=== PATIENT | male | born 1995 | race Caucasian/White ===

== ENCOUNTER 2017-03-06 04:38 | Emergency (ER) | payer SELFPAY ==
[~2017-03-06] VITALS: Ht 172.7 cm; Wt 72.6 kg
[2017-03-06 04:39] VITALS: BP 152/93
--- NOTE | 2017-03-06 04:40 | NUR ---
TO BED 7 A 21 YO MALE BIBRA AND PER PER EMS WAS FOUND LYING IN A GUTTER BREATHING AT A RATE OF 5 PER MINUTE, 2MG NARCAN GIVEN. UPON ARRIVAL TO ER, PATIENT IS AAOX3, NO S/S OF ACUTE AND DISTRESS. BREATHING EVEN AND UNLABORED. VSS. AWAITING FOR ER MD RUBY.
[2017-03-06] MEDS ORDERED: TDAP [DIPH/PERTUSSIS/TET] 0.5 ML VIAL IM ONE (05:00)
--- NOTE | 2017-03-06 05:08 | NUR ---
Patient does not wish to proceed with medical care recommended by Dr Greenfield. Patient given information related to possible complications, up to and including , which could occur as a result of leaving the hospital at this time. Patient verbalizes understanding of risks involved due to leaving against medical advice. Patient has signed AMA form.
== END 2017-03-06 05:14 | disposition home or self-care (01) ==
LOC: ER 04:41
DX: T40.1X1A Poisoning by heroin, accidental (unintentional), initial encounter (principal); S09.90XA Unspecified injury of head, initial encounter; S01.112A Laceration without foreign body of left eyelid and periocular area, initial encounter; F11.10 Opioid abuse, uncomplicated; H50.9 Unspecified strabismus; Z98.890 Other specified postprocedural states; X58.XXXA Exposure to other specified factors, initial encounter; Y93.89 Activity, other specified; Y92.89 Other specified places as the place of occurrence of the external cause; Y99.8 Other external cause status
CPT/HCPCS: A4606; Z7610

== ENCOUNTER 2020-05-04 07:47 | Inpatient (IN) | payer MEDICAID ==
[~2020-05-04] VITALS: Ht 172.7 cm; Wt 82.1 kg
[2020-05-04] VITALS (14 sets, daily range): BP systolic 59–151; BP diastolic 34–107
--- NOTE | 2020-05-04 07:47 | NUR ---
PT BIB RA 78 FROM HIS CAR, C/O SOB. PT IS AAOX4, NOT IN RESPIRATORY DISTRESS, HOOKED TO JAVA DEVELOPMENT TEAM LEAD, KEPT RESTED AND COMFORTABLE. WILL CONTINUE TO MONITOR.
[2020-05-04] MEDS ORDERED: IV NS 0.9% 1,000 ML IV ONE (07:49)
--- NOTE | 2020-05-04 07:55 | NUR ---
SEEN AND EXAMINED BY .
[2020-05-04] MEDS ORDERED: ACETAMINOPHEN ES 500 MG TABLET PO ONE (08:00)
--- NOTE | 2020-05-04 08:00 | NUR ---
IV LINE ESTABLISHED BLOOD DRAWN AND SENT TO LAB.
--- NOTE | 2020-05-04 08:06 | NUR ---
COVID SWAB OBTAINED AND SENT TO LAB.
--- NOTE | 2020-05-04 08:09 | NUR ---
URINAL GIVEN BUT UNABLE TO PROVIDE URINE SPECIMEN THIS TIME.
[2020-05-04] MEDS ORDERED: ACETAMINOPHEN ES 500 MG TABLET ONE (08:11)
[2020-05-04 08:17] LABS: BASOPHILS # (AUTO) 0.1 /CMM (0.0-0.2); BASOPHILS % (AUTO) 0.4 % (0.0-2.0); EOSINOPHILS % (AUTO) 0.1 % (0.0-6.0); HEMATOCRIT 49 % (39-51); HEMOGLOBIN 16.7 g/dL (13.5-17.5); LYMPHOCYTES # (AUTO) 0.4 /CMM (0.8-4.8); LYMPHOCYTES % (AUTO) 1.8 % (20.0-44.0); MEAN CORPUSCULAR HGB CONC 34 g/dl (31.0-36.0); MEAN CORPUSCULAR VOLUME 84 fL (80-96); MONOCYTES # (AUTO) 1.9 /CMM (0.1-1.30); MONOCYTES % (AUTO) 7.7 % (2.0-12.0); NEUTROPHILS # (AUTO) 22.2 /CMM (1.8-8.9); PLATELET COUNT (AUTO) 659 /CMM (150-450); RED BLOOD CELL COUNT(AUTO) 5.87 MIL/uL (4.5-6.0); WHITE BLOOD COUNT (AUTO) 24.6 K/uL (4.3-11.0)
--- NOTE | 2020-05-04 08:21 | NUR ---
EDUCATION REP AT BED FOR XRAY.
[2020-05-04 08:27] LABS: ALBUMIN 3.3 g/dL (3.4-5.0); ALKALINE PHOSPHATASE 67 U/L (46-116); ASPARTATE AMINOTRANSFERASE 316 U/L (15-37); BILIRUBIN,TOTAL 4.9 mg/dL (0.2-1.0); CARBON DIOXIDE 39 mmol/L (21-32); GLUCOSE 106 mg/dL (74-106); POTASSIUM 5.4 mmol/L (3.5-5.1); SODIUM SERUM 121 mmol/L (136-145)
[2020-05-04 08:30] LABS: CALCIUM, SERUM 5.8 mg/dL (8.5-10.1); CHLORIDE 65 mmol/L (98-107); CREATININE 15.1 mg/dL (0.6-1.3); UREA NITROGEN, BLOOD 102 mg/dL (7-18)
--- NOTE | 2020-05-04 08:38 | NUR ---
CALLED [facility] FOR CONSULT.
--- NOTE | 2020-05-04 08:39 | NUR ---
CALLED PHARMACY FOR ANTIBIOTIC.
[2020-05-04 08:42] LABS: ALANINE AMINOTRANSFERASE 4235 U/L (12-78)
[2020-05-04] MEDS ORDERED: ASPIRIN 325 MG TABLET ONE (08:58)
[2020-05-04] MEDS ORDERED: CEFTRIAXONE 1GM BAG (ER ONLY) 50 ML IV ONE ×2 (08:59→09:00)
[2020-05-04] MEDS ORDERED: DEXAMETHASONE SOD PHOSPHATE 6 MG in IV D5W 50 ML IV ONE (09:00)
[2020-05-04] MEDS ORDERED: IV NS 0.9% 1,000 ML BAG IV ONE (09:00)
[2020-05-04] MEDS ORDERED: AZITHROMYCIN 500 MG in IV D5W 250 ML IV ONE (09:00)
[2020-05-04] MEDS ORDERED: ASPIRIN 325 MG TABLET PO ONE (09:00)
--- NOTE | 2020-05-04 09:00 | NUR ---
FOLLOWED UP PHARMACY FOR ANTIBIOTIC.
[2020-05-04] MEDS ORDERED: IV NS 0.9% 1,000 ML IV PRN ×2 (09:05→11:40)
[2020-05-04 09:25] LABS: ABG BASE EXCESS 9.8 mmol/L; ABG PCO2 56.9 mmHg (35.0-45.0); ABG PH 7.426 (7.350-7.450); ABG PO2 92.3 mmHg (75.0-100.0); AaDO2 127.5 mmHg; COHb 7.3 % (0.5-1.5); MetHb 0.4 % (0.0-1.5); O2Hb 88.6 % (94.0-97.0); SITE, ABG Right Radial; VENT MODE, BG 5L N/C
[2020-05-04] MEDS ORDERED: Z GUARD REMEDY 2 OZ OINT TP PRN (09:30)
[2020-05-04] MEDS ORDERED: ACETAMINOPHEN 325 MG TABLET PO PRN (09:30)
[2020-05-04] MEDS ORDERED: ENOXAPARIN SODIUM 40 MG/0.4 ML DISP.SYRIN SQ SCH (09:30)
[2020-05-04] MEDS ORDERED: ONDANSETRON HCL/PF 4 MG/2 ML VIAL IVP PRN (09:30)
[2020-05-04 09:34] LABS: D-DIMER 0.62 mg/L(FEU (0.17-0.50)
--- NOTE | 2020-05-04 10:25 | NUR ---
ROOM GIVEN ICU 263.
[2020-05-04 10:26] LABS: CREATINE KINASE, TOTAL 3803 U/L (39-308); FERRITIN 241 ng/mL (8-388)
[2020-05-04 10:34] LABS: C-REACTIVE PROTEIN 4.8 mg/dL (0.0-0.9)
--- NOTE | 2020-05-04 10:36 | NUR ---
URINE SPECIMEN COLLECTED AND SENT TO LAB.
[2020-05-04 10:46] LABS: APPEARANCE,URINE Clear (CLEAR); BILIRUBIN,URINE MODERATE (NEGATIVE); BLOOD, URINE Moderate Ery/uL (NEGATIVE); COLOR,URINE Yellow (YELLOW); KETONES,URINE Negative (NEGATIVE); LEUKOCYTE ESTERASE ,URINE Negative (NEGATIVE); NITRITE, URINE Negative (NEGATIVE); PROTEIN,URINE 100 mg/dl (NEGATIVE); UGLUCOSE 100 MG/DL mg/dL (NEGATIVE); UROBILINOGEN,URINE 0.2 EU/dL (0.2)
--- NOTE | 2020-05-04 10:48 | NUR ---
RT ABG CANCELLED IT WAS DOUBLE ORDERED. ABG DONE AT 0920 AM
--- NOTE | 2020-05-04 10:49 | NUR ---
CALLED ICU FOR REPORT RN NOT AVAILABLE.
[2020-05-04 10:53] LABS: BILIRUBIN,DIRECT 3.8 mg/dL (0.0-0.2)
[2020-05-04 10:56] LABS: BACTERIA,URINE Few /HPF (None Seen)
[2020-05-04 10:57] LABS: HYALINE CASTS, URINE Few /LPF (None Seen); SQUAMOUS EPITHELIAL CELL,UR None Seen /HPF (None Seen); URINE AMORPHOUS URATE Few /HPF (None Seen)
--- NOTE | 2020-05-04 11:11 | NUR ---
REPORT GIVEN TO EUSEBIA LUGO FOR BRITTA. WITH ONGOING IV ANTIBIOTIC.
[2020-05-04] MEDS ORDERED: HEPARIN SODIUM, PORCINE 5000 UNITS/1 ML VIAL SQ SCH (11:35)
[2020-05-04 11:47] LABS: THYROID STIMULATING HORMONE 0.408 uIU/mL (0.358-3.74)
--- NOTE | 2020-05-04 14:05 | NUR ---
MOTION PICTURES CARTOONIST NOTE: PATIENT CAME TO [facility] TODAY WITH C/O SOB. PER ER, PATIENT WAS RESIDING IN A REHAB CENTER WHEN HE LEFT FOR A FEW DAYS, LIVED IN HIS CAR AND LATER HAD RESPIRATORY SYMPTOMS WHEN HE PRESENTED HIMSELF IN THE HOSPITAL. PATIENT WAS BROUGHT UP TO THE ICU AT 1128 WITH DX OF SEPSIS, R/O (RESULTS ARE NEGATIVE), POSSIBLE KATH. PATIENT'S SKIN IS INTACT. NO SIGNS OF ACUTE RESPIRATORY DISTRESS NOTED, NC USED FOR COMFORT, SATING WELL. SR IN THE 80S ON BEDSIDE MONITOR. PATIENT C/O MILD BACK AND NECK PAIN, CONTACTED DR BARCLAY FOR ORDERS FOR PAIN MEDS, AWAITING CALL BACK. MD AWARE OF ADMISSION AND ROUNDED ON PATIENT WITH ADMITTING ORDERS, ALREADY STARTED PLAN OF CARE AND WILL CONTINUE TO MONITOR PATIENT FOR CHANGES. SAFETY MEASURES IMPLEMENTED, BED IN LOWEST POSITION, LOCKED, SIDE RAILS UP X2, CALL LIGHT WITHIN REACH.
[2020-05-04] MEDS ORDERED: HEPARIN SODIUM, PORCINE 5000 UNITS/1 ML VIAL SQ ONE (15:30)
[2020-05-04] MEDS: HEPARIN INFUSION/D5W 500 ML IV PRN (16:13)
[2020-05-04 16:57] LABS: BASOPHILS % (AUTO) 0.2 % (0.0-2.0); HEMATOCRIT 45 % (39-51); HEMOGLOBIN 14.9 g/dL (13.5-17.5); LYMPHOCYTES # (AUTO) 0.5 /CMM (0.8-4.8); LYMPHOCYTES % (AUTO) 2.7 % (20.0-44.0); MEAN CORPUSCULAR HGB CONC 34 g/dl (31.0-36.0); MEAN CORPUSCULAR VOLUME 85 fL (80-96); MONOCYTES # (AUTO) 0.7 /CMM (0.1-1.30); MONOCYTES % (AUTO) 3.9 % (2.0-12.0); NEUTROPHILS # (AUTO) 17.5 /CMM (1.8-8.9); NEUTROPHILS % (AUTO) 93.2 % (43.0-81.0); PLATELET COUNT (AUTO) 574 /CMM (150-450); RED BLOOD CELL COUNT(AUTO) 5.27 MIL/uL (4.5-6.0); WHITE BLOOD COUNT (AUTO) 18.8 K/uL (4.3-11.0)
[2020-05-04] MEDS ORDERED: IV Sodium Chloride 3% 500 ML 500 ML IV SCH (19:00)
--- NOTE | 2020-05-04 19:00 | NUR ---
DR BARCLAY AND DR BHAGAT BOTH AWARE OF THE PATIENT'S CRITICAL LAB VALUES.
--- NOTE | 2020-05-04 19:30 | NUR ---
RN CLOSING NOTE: PATIENT REMAINS IN BED. VSS AT THIS TIME. NO SIGNS OF ACUTE DISTRESS NOTED. NOT SIGNS OF RESPIRATORY DISTRESS NOTED. SAFETY MEASURES IMPLEMENTED, BED IN LOWEST POSITION, LOCKED, SIDE RAILS UP X2, CALL LIGHT WITHIN REACH. GAVE REPORT TO ONCOMING SHIFT RN FOR CONTINUITY OF CARE.
--- NOTE | 2020-05-04 19:30 | NUR ---
GRIZZLY WORKER NOTE RECEIVED PT ALERT TO NAME AND PLACE. NOTED WITH EPISODES OF CONFUSION AND RESTLESSNESS. REORIENTED PT. ON TELE-SR. ROOM AIR. BREATHING UNLABORED. ILEANA MIDLINE REINFORCED WITH HEPARIN DRIP INFUSING. KATZ CATHETER IN PLACE AND DRAINING TEA COLOR URINE BY GRAVITY. BED ALARM ENABLED. CALL LIGHT WITHIN REACH. WILL CONTINUE TO MONITOR.
--- NOTE | 2020-05-04 21:30 | NUR ---
COMMERCIAL GLAZIER NOTE 3% SODIUM IV INFUSION STARTED @30ML/HR, TO INFUSE 150ML PER MD ORDER. WILL MONITOR PT.
[2020-05-04 22:02] LABS: ALBUMIN 2.8 g/dL (3.4-5.0); BILIRUBIN,TOTAL 3.7 mg/dL (0.2-1.0); POTASSIUM 5.2 mmol/L (3.5-5.1); TOTAL PROTEIN, SERUM 6.2 g/dL (6.4-8.2)
[2020-05-04 22:08] LABS: CALCIUM, SERUM 5.2 mg/dL (8.5-10.1); CREATININE 15.6 mg/dL (0.6-1.3)
[2020-05-04] MEDS: NICOTINE PATCH (21MG) 21 MG PATCH.TD24 TD SCH (23:06)
--- NOTE | 2020-05-04 23:30 | NUR ---
PRE OWNED SALES MANAGER NOTE PT ASKING TO GO OUTSIDE AND SMOKE. EDUCATED PT ON SMOKING CESSATION. NOTIFIED ANILA DONALD WITH ORDERS TO START NICOTINE PATCH 21 MG. ORDERS NOTED AND CARRIED OUT.
[2020-05-05] VITALS (20 sets, daily range): BP systolic 110–161; BP diastolic 56–114
--- NOTE | 2020-05-05 | NUR ---
SANITATION OFFICER NOTE CONSENT FOR INTIATION OF DIALYSIS AND DIALYSIS CATHETER INSERTION RECEIVED. ANILA DONALD AT BEDSIDE INSERTING DIALYSIS CATHETER. RIGHT FEMORAL PAULA CATH INSERTED AND SECURED WITH TAPE TO LEG. NOTED PT RESTLESS AND PULLING ON LINES AND TUBES. PER ANILA DONALD 1:1 SITTER ORDERED. BED ALARM ENABLED. CALL LIGHT WITHIN REACH. WILL MONITOR.
--- NOTE | 2020-05-05 02:17 | NUR ---
LAB CALLED WITH NEGATIVE COVID RESULT.
[2020-05-05 04:47] LABS: BASOPHILS # (AUTO) 0.1 /CMM (0.0-0.2); BASOPHILS % (AUTO) 0.6 % (0.0-2.0); HEMATOCRIT 45 % (39-51); LYMPHOCYTES # (AUTO) 0.4 /CMM (0.8-4.8); LYMPHOCYTES % (AUTO) 2.2 % (20.0-44.0); MEAN CORPUSCULAR HGB CONC 34 g/dl (31.0-36.0); MEAN CORPUSCULAR VOLUME 84 fL (80-96); MONOCYTES # (AUTO) 1.5 /CMM (0.1-1.30); MONOCYTES % (AUTO) 8.4 % (2.0-12.0); NEUTROPHILS # (AUTO) 16.1 /CMM (1.8-8.9); NEUTROPHILS % (AUTO) 88.8 % (43.0-81.0); PLATELET COUNT (AUTO) 545 /CMM (150-450); WHITE BLOOD COUNT (AUTO) 18.2 K/uL (4.3-11.0)
[2020-05-05 05:10] LABS: ALBUMIN 2.7 g/dL (3.4-5.0); BILIRUBIN,TOTAL 3.2 mg/dL (0.2-1.0); MAGNESIUM 3.1 mg/dL (1.8-2.4); POTASSIUM 5.4 mmol/L (3.5-5.1)
[2020-05-05 05:14] LABS: ALBUMIN 2.7 g/dL (3.4-5.0); BILIRUBIN,DIRECT 2.8 mg/dL (0.0-0.2); BILIRUBIN,TOTAL 3.2 mg/dL (0.2-1.0)
[2020-05-05 05:15] LABS: CALCIUM, SERUM 5.5 mg/dL (8.5-10.1)
[2020-05-05 05:16] LABS: CREATININE 15.7 mg/dL (0.6-1.3); PHOSPHORUS 12.1 mg/dL (2.5-4.9)
--- NOTE | 2020-05-05 06:46 | NUR ---
DYE REEL OPERATOR NOTE PT REMAINED STABLE DURING SHIFT. WITH EPISODES OF CONFUSION/RESTLESSNESS BUT REDIRECTABLE. REMAINS ON HEPARIN DRIP. RIGHT FEMORAL PAULA CATH REINFORCED D/T PT TOUCHING THE SITE. INSTRUCTED TO NOT TOUCH OR TRY TO REMOVE TAPE FROM RIGHT FEMORAL. PT DEMONSTRATES UNDERSTANDING. BED ALARM ENABLED. ALL NEEDS ATTENDED TO PROMPTLY. WILL ENDORSE TO NEXT SHIFT FOR CONTINUITY OF CARE.
--- NOTE | 2020-05-05 07:50 | NUR ---
RN OPENING NOTE: RECEIVED PATIENT IN BED THIS MORNING. PATIENT IS ALERT AND ORIENTED X3, BUT HAS EPISODES CONFUSED AND FORGETFUL. PATIENT IS SATING WELL ON ROOM AIR. NO SIGNS OF ACUTE RESPIRATORY DISTRESS NOTED. NO SIGNS OF ACUTE DISTRESS NOTED AT THIS TIME. PATIENT HAS KATZ, DRAINING DARK YELLOW URINE. ADMITS TO EPISODES OF NAUSEA, OFFERED ZOFRAN BUT IS REFUSING AT THIS TIME. ILEANA MIDLINE C/D/I, FLUSHING WELL, NO SIGNS OF COMPLICATIONS NOTED, RUNNING HEPARIN AT 1250 UNITS/HR AT THIS TIME, AWAITING NEW PTT FOR POSSIBLE ADJUSTMENT OF DOSE. NO SIGNS OF BLEEDING NOTED AT THIS TIME. R FEMORAL PAULA CATH, C/D/I, NO SIGNS OF COMPLICATIONS NOTED. PATIENT HAS 1:1 D/T PULLING OUT MEDICAL EQUIPMENT AND TUBING. SAFETY MEASURES IMPLEMENTED, BED IN LOWEST POSITION, LOCKED, SIDE RAILS UP X2, CALL LIGHT WITHIN REACH. WILL CONTINUE TO MONITOR PATIENT FOR CHANGES.
[2020-05-05 08:30] LABS: HIV SCRN 4G wRFX Non Reactive (Non Reactive)
[2020-05-05] MEDS: SEVELAMER CARBONATE 800 MG TABLET PO SCH ×3 (08:31→17:18)
[2020-05-05] MEDS: NICOTINE PATCH (21MG) 21 MG PATCH.TD24 TD SCH (08:32)
[2020-05-05] MEDS: CEFTRIAXONE 1 G in IV D5W 50 ML IV SCH (08:32)
[2020-05-05] MEDS ORDERED: DEXAMETHASONE SOD PHOSPHATE 6 MG in IV D5W 50 ML IV SCH (09:00)
--- NOTE | 2020-05-05 09:07 | NUR ---
DR BHAGAT AWARE OF PATIENT'S CRITICAL LABS
[2020-05-05] MEDS: AZITHROMYCIN 500 MG in IV D5W 250 ML IV SCH (09:29)
[2020-05-05] MEDS: HEPARIN INFUSION/D5W 500 ML IV PRN (13:05)
--- NOTE | 2020-05-05 15:51 | NUR ---
PATRICK CONSULT: structural steel worker apprentice consulted with the pt at bedside regarding his foreseeable discharge plan. Nafisa was at bedside. Pt reported he was previously residing at "[facility]," and does not wish to return. Pt reported he has "some family" nearby, whom he is trying to get in contact with for support. SW observed the pt speaking with his mother on his personal phone. Pt also reported having a girlfriend, whom he was living with before the last sober living he was residing at. Pt reported he has been to numerous sober livings in the area. Pt reported he is "working" on finding a place to discharge to. SW provided [place] liv[place] [facility] [place] Additionally, PATRICK provided pt a list of all inpatient substance abuse treatment centers in [facility], and [facility] social service resources to refer to if needed. Pt reported he plans to contact sober living placements on his own. Pt denied suicidal and homicidal ideation. client services administrator available for support as needed, pending a disposition on a discharge plan.
--- NOTE | 2020-05-05 18:33 | NUR ---
PATIENT WAS TRANSFERRED TO [facility] AT 1815. GAVE REPORT TO EUSEBIA FITZGERALD FOR CONTINUITY OF CARE. PATIENT WAS IN STABLE CONDITION AT TIME OF TRANSFER. Addendum: 05/05/20 at 1834 by HUEY HAYES RN NO ACUTE DISTRESS WAS NOTED AT THE TIME OF TRANSFER.
--- NOTE | 2020-05-05 18:34 | NUR ---
RECEIVED PT TRANSFER FROM ICU AND REPORT GIVEN BY EZEQUIELTANK TRUCK OPERATOR. PT IS ALERT AND CONFUSED, AWAKE BUT VERBALLY RESPONSIVE SITTING ON THE BED. WITH 1:1 SITTER AT THE BEDSIDE.ON ROOM AIR O2 SAT 98% ON TELE MONITOR HR 97. WITH KATZ CATHETER INTACT DRAINING TEA COLORED URINE. EMPTIED AT ICU WITH 300 ML URINE OUTPUT. SKIN INTACT.PT IS BUSY WATCHING ON HIS CELL PHONE AT THIS TIME LYING IN BED.DENIES ANY PAIN OR DISTRESS.WITH ONGOING HEPARIN DRIP TO ILEANA MIDLINE RUNNING AT 1550 UNITS/HR. WITH LEFT FEMORAL PAULA CATHETER INTACT.HEMODIALYSIS DONE TODAY WITH 2LITERS OUTPUT.WILL MONITOR. ENDORSED TO PLATE MILL MILL HAND NURSE CARE.
--- NOTE | 2020-05-05 20:00 | NUR ---
LICENSED STAFF MFT: RECEIVED REPORT FROM AMILCAR Troy RN AT 1915. MET WITH PT IN THE ROOM, PT IS A/O X3, WITH REPORTS OF PERIODS OF CONFUSION, ON AND OFF. CURRENTLY, PT ABLE TO STATE HIS NAME, BDATE, MONTH DATE YEAR AND PRESIDENT. PT ON RA, RESPIRATION EVEN AND UNLABORED. PT HAS ILEANA MIDLINE PATENT AND FLUSHING WELL, CURRENTLY INFUSING WITH HEPARIN DRIP AT 1550 U/HR EQUIVALENT TO 31ML/HR WITH NEXT PTT DRAW AT 2350PM. PT S/P HD TODAY WITH LEFT FEMORAL PAULA CATH IN PLACED, DRESSING C/D/I, NO ACTIVE BLEEDING NOTED, DIALYSIS OUTPUT OF 2L. PER REPORT, PT HAD EPISODE OF PULLING OUT IV ACCESS, ALSO VOICING HIS WANTING TO LEAVE THE HOSPITAL. DISCUSSED PLAN OF CARE TO PT. PT APPEARS TO BE PASSIVE, ALWAYS ON THE PHONE, ALTHOUGH INTERACTS WHEN ENGAGED IN CONVERSATION. PT IS CALM, AND COOPERATIVE AT THIS TIME. TELE MONITORING SINUS RHYTHM HR 91. SAFETY PRECAUTIONS FOR FALL INITIATED, CALL LIGHT IN REACH, WILL CONTINUE MONITORING PT.
--- NOTE | 2020-05-05 20:51 | NUR ---
RN NOTES: RECEIVED CALL FROM MR. GRICEL COOPER, PER CALLER, HE IS THE BIOLOGICAL FATHER OF THE PT. PT IS A/O X3, VERIFIED WITH PT REGARDING HIS REQUEST, PT HAS REQUESTED NOT TO RELEASE INFORMATION TO MR. GRICEL COOPER. EXPLAIN TO GRICEL BHANDARI ABOUT THE PT'S DECISION. LOCOMOTIVE SWITCH OPERATOR AWARE.
[2020-05-05] MEDS: MUPIROCIN OINT 2% 22 GM TUBE SCH (21:33)
--- NOTE | 2020-05-05 21:53 | NUR ---
RN NOTES: AT 2129- CONTACTED WENDY SCHUSTER SUPERVISOR PRODUCTION HOSPITALIST, REGARDING PT'S SITUATION. RECEIVED CALL FROM PT'S MOTHER SANTY MARQUEZ [phone]. PER MOTHER SHE WOULD LIKE PT TO BE PLACED ON 5150 HOLD, PT BEEN THREATENING HER THAT HE WILL LEAVE THE HOSPITAL ANYTIME. ACCDG TO SANTY, PT HAS IRRATIONAL MIND, AND VOICING HE IS NOT SAFE IN THE HOSPITAL AND WANTING TO LEAVE AMA. PT'S MOM STATED SHE KNOWS PT HAS RIGHT TO LEAVE HOWEVER SHE THINKS THAT IT IS NOT SAFE FOR PT TO LEAVE AMA AND MAKE THE CERTAIN DECISION BECAUSE OF HIS STATE OF MIND. PT IS A/O X3, BUT WITH EPISODE OF CONFUSION. IN ADDITION, SHE STATED THAT PT BEEN SENDING MESSAGES TO HER THAT WERE VERY ODD. SHE ALSO WANTED TO PUT PT ON RESTRAINT. 2138- RECEIVED TELEPHONE ORDER FROM DR DONALD TO PLEASE CALL CRISIS TEAM REGARDING PT. 2144- NOTIFIED CARPET INSPECTOR FINISHED NOREEN OF THE SITUATION. 2149- CARPET INSPECTOR FINISHED CONTACTED ART/CRISIS TEAM HOWEVER HE STATED HE IS NOT THE SUPERVISOR PRODUCTION FOR IBLLY, IT IS NIR [phone] STARTING 2199.
--- NOTE | 2020-05-05 22:01 | NUR ---
RN NOTES: ACTUARIAL ANALYSTNIC SORTO CONTACTED NIR/CRISIS TEAM, DIRECTED THRU A VOICEMAIL, LEFT A MESSAGE. AWAITING FOR CALL BACK.
--- NOTE | 2020-05-05 22:37 | NUR ---
RN NOTES: RECEIVED CALL FROM PT'S MOTHER SANTY MARQUEZ, RELAYED ABOUT UPDATE, AWAITING TO BE SEEN BY CRISIS TEAM. INFORMED PT CURRENTLY ASLEEP. PER SANTY THEY WOULD LIKE TO SPEAK WITH CRISIS TEAM AFER EVALUATING THEIR SON. SHE STATED SHE IS JUST VERY SCARED THAT THE PT WILL HURT HIMSELF ONCE HE LEAVE THE HOSPITAL. ACCDG TO HER SHE AND HER SON HAD VIDEO CALL EARLIER AND SON STATING THAT HE FEELS LIKE HE'S BEING WATCH, AND THINK HE'S ON PSYCH UNIT. STEAM TUNNEL FEEDER NOREEN MADE AWARE OF THE CONVERSATION.
--- NOTE | 2020-05-05 23:00 | NUR ---
RN NOTES: CANDY SEPARATOR ENROBING NOREEN HELPING IN CONTACTING CRISIS TEAM NURSE
--- NOTE | 2020-05-05 23:30 | NUR ---
RN NOTES: PT SLEEPING AT THIS TIME, APPEARS COMFORTABLE, NO SOB NOTED. SITTER AT BEDSIDE.
[2020-05-06] VITALS: BP 131/71
--- NOTE | 2020-05-06 00:14 | NUR ---
RN NOTES: DIRECTOR MEDIA BEEN TRYING TO REACH CRISIS TEAM, EVEN COORDINATED WITH ER AND GPS, AWAITING CALL BACK FROM CRISIS NURSE
--- NOTE | 2020-05-06 00:16 | NUR ---
RN NOTES/PTT DRAW: MUD WORKER JUST FINISHED DRAWING BLOOD, TIMED PT INR AND PTT. PT ON HEPARIN DRIP.
--- NOTE | 2020-05-06 00:20 | NUR ---
RN NOTES: PER PERSONAL LINES APPRAISER NOREEN, THEY CONTACTED BARTOLO CALI, HEAD OF CRISIS TEAM, AWAITING FOR CALL BACK.
--- NOTE | 2020-05-06 01:03 | NUR ---
RN NOTES: RESULT OF PTT CAME BACK: PT 13.5 INR 1.28 APTT 54.0
--- NOTE | 2020-05-06 01:15 | NUR ---
RN NOTES/HEPARIN DRIP: RESULT OF PTT CAME BACK: PT 13.5 INR 1.28 APTT 54.0 PER HEPARIN BASED PROTOCOL, NO CHANGE IN RATE NEXT PTT DRAW ON 05/06/2020 AT 2300 CURRENT RATE: 1550 U/HR, EQUIVALENT TO 31 ML/HR
[2020-05-06] MEDS: HEPARIN INFUSION/D5W 500 ML IV PRN (04:09)
[2020-05-06 04:10] VITALS: BP 144/72
--- NOTE | 2020-05-06 06:07 | NUR ---
rn notes/crisis team eval: gregg crisis team nurse ca,me to evaluate pt, also made aware of situation, provided sbar, also informed to call pt's mpother per request after evaluating pt. barn operator bernabe aware and witness
--- NOTE | 2020-05-06 06:21 | NUR ---
rn notes: per gregg crisis nurse, he spoke with pt and pt's mother. accdg to gregg pt is not holdable, pt able to make decision for himself, and that the mother appears to be worried about pt's drug abuse. trial attorney aware.
[2020-05-06 06:31] LABS: BASOPHILS % (AUTO) 0.2 % (0.0-2.0); HEMATOCRIT 43 % (39-51); HEMOGLOBIN 14.3 g/dL (13.5-17.5); LYMPHOCYTES # (AUTO) 0.5 /CMM (0.8-4.8); LYMPHOCYTES % (AUTO) 2.6 % (20.0-44.0); MEAN CORPUSCULAR HGB CONC 33 g/dl (31.0-36.0); MEAN CORPUSCULAR VOLUME 86 fL (80-96); MONOCYTES # (AUTO) 1.9 /CMM (0.1-1.30); MONOCYTES % (AUTO) 9.4 % (2.0-12.0); NEUTROPHILS # (AUTO) 17.8 /CMM (1.8-8.9); NEUTROPHILS % (AUTO) 87.8 % (43.0-81.0); PLATELET COUNT (AUTO) 439 /CMM (150-450); RED BLOOD CELL COUNT(AUTO) 5.02 MIL/uL (4.5-6.0); WHITE BLOOD COUNT (AUTO) 20.2 K/uL (4.3-11.0)
[2020-05-06 07:10] LABS: ALBUMIN 2.2 g/dL (3.4-5.0); BILIRUBIN,DIRECT 1.4 mg/dL (0.0-0.2); BILIRUBIN,TOTAL 1.7 mg/dL (0.2-1.0); CALCIUM, SERUM 6.4 mg/dL (8.5-10.1); MAGNESIUM 2.8 mg/dL (1.8-2.4); POTASSIUM 5.6 mmol/L (3.5-5.1); TOTAL PROTEIN, SERUM 5.5 g/dL (6.4-8.2)
[2020-05-06 07:12] LABS: CREATININE 13.4 mg/dL (0.6-1.3)
--- NOTE | 2020-05-06 07:20 | NUR ---
rn notes/critical lab phos 9.0: received critical lab for phos 9.0 reported by ximena from lab. endorsed to sanjuana barton. epic hospitalist to be made aware.
--- NOTE | 2020-05-06 07:30 | NUR ---
RN OPEN NOTES A/O x 4 patient in bed resting with no signs of distress room air. Right UA midline intact and patent with Heparin drip running. Maria cath is intact. Safety measures are applied bed is lock in low position side rails up x 2 for safety. Will continue to monitor.
--- NOTE | 2020-05-06 07:32 | NUR ---
end of shift report: pt able to sleep for approximately 6hrs 1:1 sitter at bed side for safety. remains passive, appears calm, answer question and interacts when engaged in conversation. pt remains a/o x2-3 with periods of confusion. pt able to make needs known. pt denies any hi/si, denies any pains of hurting himself, however pt remains quiet most of the time and mostly engaged on his cellphone. donell midline remains patent and flushing well, [place] 92302e/hr equivalent to 31ml/hr. next ptt draw at 2300 tonight. right femoral hd cath remains in placed, dressing in placed, c/d/i.no s/s of active bleeding noted. ibarra catheter remains in placed, bag draining via gravity. tele monitoring sinus rhythm hr 90. vs remains stable, needs attended. ,safety precautions for fall remains engaged, call light in reach, will endorse to day rn for continuity of care.
[2020-05-06 08:00] VITALS: BP 148/74
[2020-05-06 08:11] LABS: COMPLEMENT C3, SERUM 62 mg/dL (82-167); COMPLEMENT C4, SERUM 16 mg/dL (14-44)
[2020-05-06] MEDS: SEVELAMER CARBONATE 800 MG TABLET PO SCH ×3 (08:50→17:16)
[2020-05-06] MEDS: NICOTINE PATCH (21MG) 21 MG PATCH.TD24 TD SCH (08:50)
[2020-05-06] MEDS: MUPIROCIN OINT 2% 22 GM TUBE SCH ×2 (09:02→20:29)
--- NOTE | 2020-05-06 10:32 | NUR ---
RN NOTES RELAYED LATEST TROPONIN LEVEL TO DR. HARO, RECEIVED ORDER TO DC HEPARIN DRIP.
[2020-05-06] MEDS: CEFTRIAXONE 1 G in IV D5W 50 ML IV SCH (10:42)
--- NOTE | 2020-05-06 14:30 | NUR ---
RN NOTES PATIENT INSISTED FOR AN HIV TEST DONE AGAIN. I INFORMED PATIENT ABOUT HIS PREVIOUS HIV TEST RESULT BEING NEGATIVE, HE STILL INSISTED FOR ANOTHER TEST. I LET DR. BARCLAY KNOW , DR. BARCLAY GAVE THE OK TO ODER ANOTHER HIV TEST.
[2020-05-06 15:06] LABS: CREATININE, URINE 242.6 MG/DL (30.0-125.0)
[2020-05-06] MEDS: AZITHROMYCIN 500 MG in IV D5W 250 ML IV SCH (15:43)
--- NOTE | 2020-05-06 19:28 | NUR ---
RN CLOSED NOTES A/O x 4 patient in bed resting with no signs of distress room air. Right UA midline intact and patent with Heparin drip running. Maria cath is intact. Scheduled medications were given and tolerated well without complications. Safety measures are applied bed is lock in low position side rails up x 2 for safety. Will continue to monitor. Addendum: 05/06/20 at 1929 by BLAIR VALENZUELA RN Will endorse to the next shift nurse.
[2020-05-06 20:00] VITALS: BP 147/79
--- NOTE | 2020-05-06 20:00 | NUR ---
RECYCLABLE MATERIALS COLLECTOR: RECEIVED REPORT FROM ELISA RN AT 1915. MET WITH PT AT BED SIDE, PT EATING DINNER, SITTER AT BED SIDE, PT ALSO REQUESTED FOR CEREALS. PT S/P HD TODAY 2L OUTPUT. PT APPEARS CALM AND PLEASANT, A/O X3-4 (ABLE TO STATE NAME , MONTH DATE YEAR, PRESIDENT AND REASON WHY HE'S HERE). ILEANA MIDLINE PATENT AND FLUSHING WELL. KATZ CATHETER IN PLACED, BAG DRAINING VIA GRAVITY. JHAD ONE BM TODAY. SAFETY PRECAUTIONS FOR FALL INITIATED, CALL LIGHT IN REACH, WILL CONTINUE MONITORING PT.
--- NOTE | 2020-05-06 20:33 | NUR ---
RN NOTES/MED: SCHEDULED BACTROBAN ADMINISTERED AT THIS TIME, APPLIED ON BILATERAL NOSTRILS. PT ON THE PHONE TALKING WITH FAMILY. SITTER [place]IN[place]O AT BED SIDE. PT ON 1:1 SITTER FOR SAFETY AND ELOPEMENT RISK.
[2020-05-06 21:06] LABS: *ANA ANTI-CENTROMERE B AB <0.2 AI (0.0-0.9); *ANA ANTI-DNA(DS) AB, QN <1 IU/mL (0-9); *ANA ANTI-JO-1 <0.2 AI (0.0-0.9); *ANA ANTICHROMATIN ANTIBODY <0.2 AI (0.0-0.9); *ANA RNP ANTIBODIES <0.2 AI (0.0-0.9); *ANA SJOGREN'S ANTI-SS-A <0.2 AI (0.0-0.9); *ANA SJOGREN'S ANTI-SS-B <0.2 AI (0.0-0.9); *ANAANTI-SCLERODERMA-70 AB <0.2 AI (0.0-0.9); *ANASMITH AB <0.2 AI (0.0-0.9)
--- NOTE | 2020-05-06 23:26 | NUR ---
rn notes: pt sleeping at this time. sitter at bed side. pt appears calm and comfortable, no facial grimace noted.
--- NOTE | 2020-05-07 06:49 | NUR ---
end of shift report: pt remains with 1:1 sitter. pt remains calm, cooperative, engaged in conversation. no episode of trying to pull out iv access, didnt report or verbalize any plans of leaving the hospital. all due meds administered. ibarra catheter remains in placed. iv access remains patent and flushing well, on hl, no s/s of iv infiltration noted. right arianna hd cath remains in placed, dressing c/d/i. no s/s of active bleeding noted. no untoward behavior noted throughout the shift. able to sleep for at least 6hrs. PLAN OF CARE: CONTINUE IV ATB PER ID. vs remains stable, needs attended. safety precautions for fall remains engaged, call light in reach, will endorse to day rn for continuity of care.
--- NOTE | 2020-05-07 07:30 | NUR ---
PATIENT RECEIVED RESTING COMFORTABLY IN BED WITH EYES CLOSED. NO S/S OR C/O PAIN OR DISTRESS NOTED. SIDERAILS UP X2, CALL LIGHT LEFT WITHIN REACH. WILL CONTINUE PLAN OF CARE.
[2020-05-07] MEDS: CEFTRIAXONE 1 G in IV D5W 50 ML IV SCH (08:03)
[2020-05-07] MEDS: NICOTINE PATCH (21MG) 21 MG PATCH.TD24 TD SCH (08:03)
[2020-05-07] MEDS: SEVELAMER CARBONATE 800 MG TABLET PO SCH ×3 (08:05→17:47)
[2020-05-07] MEDS: MUPIROCIN OINT 2% 22 GM TUBE SCH ×2 (08:06→20:33)
[2020-05-07] MEDS: AZITHROMYCIN 500 MG in IV D5W 250 ML IV SCH (09:04)
--- NOTE | 2020-05-07 15:30 | NUR ---
Spoken to RN today regarding the U/S Needle Guided Biopsy. Advised him that it will be done possibly tomorrow depending on the availability of pathology
--- NOTE | 2020-05-07 18:43 | NUR ---
CHANGE OF SHIFT REPORT PT RESTING COMFORTABLY IN BED. NO S/S OR C/O PAIN OR DISTRESS NOTED. SIDE RAILS UP X2, CALL LIGHT LEFT WITHIN REACH. PT KEPT CLEAN, DRY, AND COMFORTABLE. NO SIGNIFICANT CHANGES SINCE PREVIOUS SHIFT. WILL GIVE REPORT TO NETO LAWS.
--- NOTE | 2020-05-07 19:48 | NUR ---
MS RN OPENING NOTES PATIENT RECEIVED RESTING IN BED A/O X 4. STABLE ON RA WITH BREATHING EVEN AND UNLABORED, NO SOB NOTED. NO SIGNS OF ACUTE DISTRESS. PATIENT AMBULATORY. NO COMPLAINTS OF PAIN OR DISCOMFORT. KATZ CATH NOTED AND IN PLACE. ILEANA MIDLINE HL AND R FEMORAL PAULA CATH NOTED. SAFETY PRECAUTIONS IN PLACE WITH BED IN LOWEST POSITION, CALL LIGHT WITHIN REACH, BREAKS ON, SIDE RAILS UP. WILL CONTINUE TO MONITOR THROUGHOUT THE NIGHT.
[2020-05-07 20:00] VITALS: BP 147/89
--- NOTE | 2020-05-07 21:06 | NUR ---
MS EUSEBIA NOTES [facility] SITE SOILED, APPLIED AND REDRESSED WITH MICROPORE TAPE.
--- NOTE | 2020-05-08 06:50 | NUR ---
MS RN CLOSING NOTES PATIENT RESTING IN BED A/O X 4. STABLE ON RA WITH BREATHING EVEN AND UNLABORED, NO SOB NOTED. NO SIGNS OF ACUTE DISTRESS. PATIENT AMBULATORY. NO COMPLAINTS OF PAIN OR DISCOMFORT. KATZ CATH NOTED AND IN PLACE DRAINING YELLOW URINE. ILEANA MIDLINE HL AND R FEMORAL PAULA CATH NOTED. SAFETY PRECAUTIONS IN PLACE WITH BED IN LOWEST POSITION, CALL LIGHT WITHIN REACH, BREAKS ON, SIDE RAILS UP. ALL NEEDS ATTENDED TO. WILL ENDORSE TO ONCOMING SHIFT ABOUT BRITTA.
--- NOTE | 2020-05-08 07:06 | NUR ---
MS RN OPENING NOTES RECEIVED PATIENT RESTING IN BED AT THIS TIME. A/O X 4. PT IS ABLE TO MAKE NEEDS KNOWN. STABLE ON RA RESPIRATION EVEN AND UNLABORED, NO SOB NOTED. NO SIGNS OF ANY ACUTE DISTRESS. PATIENT IS AMBULATORY. NO C/O OF PAIN AT THIS TIME. KATZ CATH IN PLACE DRAINING CLEAR YELLOW URINE OUTPUT. ILEANA MIDLINE HL AND R FEMORAL PAULA CATH NOTED INTACT AND PATENT. SAFETY PRECAUTIONS IN PLACE. BED IN LOWEST LOCKED POSITION, BED ALARM ALARM ON, SIDE RAILS, CALL LIGHT WITHIN REACH. WILL CONTINUE TO MONITOR.
[2020-05-08 07:12] LABS: BASOPHILS % (AUTO) 0.1 % (0.0-2.0); HEMATOCRIT 43 % (39-51); LYMPHOCYTES # (AUTO) 1.6 /CMM (0.8-4.8); LYMPHOCYTES % (AUTO) 5.5 % (20.0-44.0); MEAN CORPUSCULAR HGB CONC 33 g/dl (31.0-36.0); MEAN CORPUSCULAR VOLUME 85 fL (80-96); MONOCYTES % (AUTO) 6.7 % (2.0-12.0); NEUTROPHILS # (AUTO) 25.7 /CMM (1.8-8.9); NEUTROPHILS % (AUTO) 86.7 % (43.0-81.0); PLATELET COUNT (AUTO) 421 /CMM (150-450); RED BLOOD CELL COUNT(AUTO) 5.02 MIL/uL (4.5-6.0); WHITE BLOOD COUNT (AUTO) 29.6 K/uL (4.3-11.0)
[2020-05-08 08:00] VITALS: BP 142/84
[2020-05-08] MEDS: NICOTINE PATCH (21MG) 21 MG PATCH.TD24 TD SCH (08:43)
[2020-05-08] MEDS: SEVELAMER CARBONATE 800 MG TABLET PO SCH ×3 (08:43→18:07)
[2020-05-08 09:09] LABS: ALBUMIN 2.1 g/dL (3.4-5.0); BILIRUBIN,TOTAL 1.2 mg/dL (0.2-1.0); CALCIUM, SERUM 7.8 mg/dL (8.5-10.1); MAGNESIUM 2.5 mg/dL (1.8-2.4); PHOSPHORUS 6.2 mg/dL (2.5-4.9); POTASSIUM 4.9 mmol/L (3.5-5.1); TOTAL PROTEIN, SERUM 5.4 g/dL (6.4-8.2)
[2020-05-08] MEDS: MUPIROCIN OINT 2% 22 GM TUBE SCH ×2 (09:09→21:15)
[2020-05-08 09:29] LABS: CREATININE 10.9 mg/dL (0.6-1.3)
[2020-05-08 09:40] LABS: EOSINOPHILS % (MANUAL) 1 % (0-4); LYMPHOCYTES % (MANUAL) 7 % (16-48); MONOCYTES % (MANUAL) 6 % (0-11.0); NEUTROPHILS % (MANUAL) 86 (42-76)
[2020-05-08 14:09] LABS: *ANCANTIMYELOPEROXIDASE (MPO) <9.0 U/mL (0.0-9.0); *ANCANTIPROTEINASE 3 (PR-3) AB <3.5 U/mL (0.0-3.5)
--- NOTE | 2020-05-08 14:36 | NUR ---
RECEIVED ORDERS FROM DR KEVIN, RADIOLOGIST TO CANCEL PT'S NPO STATUS DUE TO US KIDNEY BIOPSY BEING RESCHEDULED TOMORROW AT 11AM. PT WILL RESUME NPO STATUS POST MIDNIGHT. ORDERS CARRIED OUT. WILL CONTINUE TO MONITOR
--- NOTE | 2020-05-08 14:40 | NUR ---
PER JORGE L FROM RADIOLOGY, NURSE SHOULD ORDER A CT NEEDLE BIOPSY. ORDERS READ BACK AND CARRIED OUT. WILL CONTINUE TO MONITOR
[2020-05-08 16:00] VITALS: BP 165/81
[2020-05-08] MEDS ORDERED: HEPARIN SODIUM, PORCINE 5000 UNITS/1 ML VIAL IJ ONE (17:30)
--- NOTE | 2020-05-08 18:08 | NUR ---
PER DOCTOR BARNARD, VERIFIED BY [facility], PHARMACIST, HEPARIN SODIUM 3000UNITS IJ ONCE ADMINISTERED AT THIS TIME THROUGH HD CATH BY ZACARIAS HD NURSE. WILL CONTINUE TO MONITOR
--- NOTE | 2020-05-08 19:08 | NUR ---
MS RN CLOSING NOTES PATIENT AWAKE IN BED. PATIENT REMAINED STABLE THROUGHOUT SHIFT. PT KEPT CLEAN AND DRY. ALL CARE, NEEDS, TREATMENT AND MEDICATIONS ADMINISTERED ANTICIPATED PER ORDER. PT IS S/P HD WITH 1500CC OUTPUT. SAFETY PRECAUTIONS IN PLACE. BED IN LOWEST LOCKED POSITION, BED ALARM ALARM ON, SIDE RAILS, CALL LIGHT WITHIN REACH. WILL ENDORSE TO JAVA ANALYST NURSE FOR BRITTA
--- NOTE | 2020-05-08 19:50 | NUR ---
MS RN OPENING NOTES PATIENT RECEIVED RESTING IN BED A/O X 4, STABLE ON RA WITH BREATHING EVEN AND UNLABORED, NO SOB NOTED. NO COMPLAINTS OF PAIN OR DISCOMFORT. KATZ NOTED AND IN PLACE. ILEANA MIDLINE AND R FEMORAL PAULA CATH NOTE AND IN PLACE. SAFETY PRECAUTIONS IN PLACE WITH BED IN LOWEST POSITION, CALL LIGHT WITHIN REACH, BREAKS ON, SIDE RAILS UP. WILL CONTINUE TO MONITOR THROUGHOUT THE NIGHT.
[2020-05-08 20:00] VITALS: BP 136/77
[2020-05-09 07:03] LABS: BASOPHILS % (AUTO) 0.1 % (0.0-2.0); HEMATOCRIT 41 % (39-51); HEMOGLOBIN 13.3 g/dL (13.5-17.5); LYMPHOCYTES # (AUTO) 1.9 /CMM (0.8-4.8); MEAN CORPUSCULAR HGB CONC 33 g/dl (31.0-36.0); MEAN CORPUSCULAR VOLUME 85 fL (80-96); MONOCYTES # (AUTO) 2.2 /CMM (0.1-1.30); NEUTROPHILS # (AUTO) 22.6 /CMM (1.8-8.9); NEUTROPHILS % (AUTO) 83.9 % (43.0-81.0); PLATELET COUNT (AUTO) 366 /CMM (150-450); RED BLOOD CELL COUNT(AUTO) 4.82 MIL/uL (4.5-6.0); WHITE BLOOD COUNT (AUTO) 26.9 K/uL (4.3-11.0)
[2020-05-09 07:12] LABS: ALBUMIN 2.2 g/dL (3.4-5.0); BILIRUBIN,TOTAL 1.3 mg/dL (0.2-1.0); CALCIUM, SERUM 8.3 mg/dL (8.5-10.1); MAGNESIUM 2.4 mg/dL (1.8-2.4); POTASSIUM 4.9 mmol/L (3.5-5.1); TOTAL PROTEIN, SERUM 5.4 g/dL (6.4-8.2)
[2020-05-09 07:22] LABS: CREATININE 8.9 mg/dL (0.6-1.3)
--- NOTE | 2020-05-09 07:37 | NUR ---
MS RN CLOSING NOTES PATIENT RESTING IN BED A/O X 4, STABLE ON RA WITH BREATHING EVEN AND UNLABORED, NO SOB NOTED. NO COMPLAINTS OF PAIN OR DISCOMFORT. KATZ NOTED AND IN PLACE. ILEANA MIDLINE AND R FEMORAL PAULA CATH NOTE AND IN PLACE. SAFETY PRECAUTIONS IN PLACE WITH BED IN LOWEST POSITION, CALL LIGHT WITHIN REACH, BREAKS ON, SIDE RAILS UP. ALL NEEDS ATTENDED TO. WILL ENDORSE TO ONCOMING SHIFT ABOUT BRITTA.
--- NOTE | 2020-05-09 07:46 | NUR ---
MS RN OPENING NOTES RECEIVED PATIENT IN BED, AWAKE, A/O X4, AND WATCHING TV. PATIENT IS ON ROOM AIR; BREATHING IS EVEN AND UNLABORED; NO SOB PRESENT AT THIS TIME. NO COMPLAINS OF PAIN. KATZ NOTED AND IN PLACE. ILEANA MIDLINE AND R FEMORAL PAULA CATH PRESENT. AT THIS TIME PATIENT REMAINS NPO AND AWAITING PROCEDURE. SAFETY PRECAUTIONS IN PLACE; BED IN LOW POSITION AND LOCKED, RAILS UP X2, CALL LIGHT WITHIN REACH. WILL CONTINUE TO MONITOR PATIENT.
[2020-05-09 08:00] VITALS: BP 150/73
[2020-05-09] MEDS: MUPIROCIN OINT 2% 22 GM TUBE SCH ×2 (08:58→20:38)
[2020-05-09] MEDS: SEVELAMER CARBONATE 800 MG TABLET PO SCH ×3 (08:58→17:34)
[2020-05-09] MEDS: NICOTINE PATCH (21MG) 21 MG PATCH.TD24 TD SCH (08:58)
[2020-05-09] MEDS ORDERED: NALOXONE PREFILLED SYRINGE 2 MG/2 ML SYRINGE IV ONE (10:00)
[2020-05-09] MEDS ORDERED: MIDAZOLAM HCL 5MG/ML VIAL 25 MG/5 ML VIAL IV ONE (10:00)
[2020-05-09] MEDS ORDERED: FENTANYL PF 250MCG/5ML AMPUL IV ONE (10:00)
--- NOTE | 2020-05-09 11:33 | NUR ---
RN NOTES: Kidney biopsy procedure: Patient spoke with MD Geraldine explained the risk and benefits of the procedure, patient verbalizes understanding and signed consent. Patient remains alert and oriented at this time, denies any discomfort. Vital signs stable, and time out called at 11:30. Patient placed on monitor tech and will continue to monitor closely.
[2020-05-09] MEDS ORDERED: LIDOCAINE HCL/PF 1% 30 ML SDV ONE (11:53)
--- NOTE | 2020-05-09 12:20 | NUR ---
RN NOTES: Post kidney biopsy: Patient able to tolerate the procedure, Dressing placed on left lower quadrant no bleeding noted. Patient remains alert and oriented x4, denies any pain or discomfort. Patient transferred back to unit, report given to patient RN. Vital signs stable. Addendum: 05/09/20 at 1224 by MICHELLE MAYORGA RN Instructed patient to report any discomfort or pain.
--- NOTE | 2020-05-09 12:37 | NUR ---
MS RN NOTES PATIENT BACK FROM BIOPSY. PATIENT ASKING FOR LUNCH.
[2020-05-09 14:04] LABS: ABG OXYGEN SATURATION 96.1 % (92.0-98.5); ABG PCO2 35.6 mmHg (35.0-45.0); ABG PO2 78.1 mmHg (75.0-100.0); COHb 1.2 % (0.5-1.5); MetHb 0.1 % (0.0-1.5); O2Hb 94.9 % (94.0-97.0); SITE, ABG Right Radial; VENT MODE, BG Room Air
[2020-05-09 14:11] LABS: *ANCA ATYPICAL p-ANCA <1:20 titer (Neg:<1:20); *ANCA CYTOPLASMIC (C-ANCA) <1:20 titer (Neg:<1:20); *ANCA PERINUCLEAR (P-ANCA) <1:20 titer (Neg:<1:20)
--- NOTE | 2020-05-09 14:40 | NUR ---
MS RN NOTES KATZ OUT
--- NOTE | 2020-05-09 15:57 | NUR ---
MS RN NOTES PATIENT STATES HE HAS A FOOD DELIVERY OUTSIDE. I INFORMED HIM THAT PER HOSPITAL POLICY WE CAN NOT PROVIDE HIM WITH THE OUTSIDE FOOD. PER PATIENT HE HAS BEEN RECEIVING OUTSIDE FOOD ALL WEEK AND ME TELLING HIM HE CAN NOT HAVE IT IS SOMETHING NEW. PER PATIENT HE PAID FOR IT AND HE WANTS HIS FOOD. I TOLD HIM ALL THE POSSIBLE CONSEQUENCES OF EATING THE FOOD THAT IS NOT ACCORDING TO HIS ORDERED DIET. HE SAID HE UNDERSTANDS AND HE STILL WANTS HIS FOOD REGARDLESS. CHARGE NURSE NOTIFIED AND AWARE.
[2020-05-09 16:00] VITALS: BP 155/100
--- NOTE | 2020-05-09 18:59 | NUR ---
MS RN CLOSING NOTES PATIENT IN BED, AWAKE, A/O X4, AND WATCHING TV. PATIENT IS ON ROOM AIR; BREATHING IS EVEN AND UNLABORED; NO SOB PRESENT DURING THE SHIFT. NO COMPLAINS OF PAIN. KATZ REMOVED. ILEANA MIDLINE AND R FEMORAL PAULA CATH PRESENT. HD DONE AND 500MLS REMOVED; BP 157/91. ALL NEEDS ATTENDED TO THROUGHOUT THE DAY. SAFETY PRECAUTIONS IN PLACE; BED IN LOW POSITION AND LOCKED, RAILS UP X2, CALL LIGHT WITHIN REACH. WILL ENDORSE TO PANEL MACHINE SETTER NURSE.
--- NOTE | 2020-05-09 19:35 | NUR ---
MS RN OPENING NOTES PATIENT RECEIVED RESTING IN BED A/O X 4. STABLE ON RA WITH BREATHING EVEN AND UNLABORED, NO SOB NOTED. NO SIGNS OF ACUTE DISTRESS. NO COMPLAINTS OF PAIN OR DISCOMFORT AT THE MOMENT. ILEANA MIDLINE AND R FEMORAL PAULA CATH NOTED AND IN PLACE. SAFETY PRECAUTIONS ON WITH BED IN LOWEST POSITION, CALL LIGHT WITHIN REACH, BREAKS ON SIDE RAILS UP. WILL CONTINUE TO MONITOR.
[2020-05-09 20:00] VITALS: BP 145/79
[2020-05-09 20:41] VITALS: BP 145/87
--- NOTE | 2020-05-10 | NUR ---
MS RN NOTES PATIENT REQUESTED TO SHOWER, GOT ORDERS FROM SOCIAL SCIENCE INSTRUCTOR FOR OK TO SHOWER. PATIENT MOTIVATED FOR SELF CARE
--- NOTE | 2020-05-10 06:49 | NUR ---
MS RN CLOSING NOTES PATIENT RESTING IN BED A/O X 4. STABLE ON RA WITH BREATHING EVEN AND UNLABORED, NO SOB NOTED. NO SIGNS OF ACUTE DISTRESS. NO COMPLAINTS OF PAIN OR DISCOMFORT AT THE MOMENT. ILEANA MIDLINE AND R FEMORAL PAULA CATH NOTED AND IN PLACE. SAFETY PRECAUTIONS ON WITH BED IN LOWEST POSITION, CALL LIGHT WITHIN REACH, BREAKS ON SIDE RAILS UP. PATIENT REMAINED NPO AFTER MIDNIGHT. ALL NEEDS ATTENDED TO. WILL ENDORSE TO ONCOMING SHIFT ABOUT BRITTA.
[2020-05-10 07:06] LABS: CALCIUM, SERUM 8.4 mg/dL (8.5-10.1); CREATININE 6.7 mg/dL (0.6-1.3); POTASSIUM 5.1 mmol/L (3.5-5.1)
[2020-05-10 07:07] LABS: BASOPHILS % (AUTO) 0.1 % (0.0-2.0); EOSINOPHILS % (AUTO) 1.6 % (0.0-6.0); HEMATOCRIT 41 % (39-51); LYMPHOCYTES # (AUTO) 1.8 /CMM (0.8-4.8); LYMPHOCYTES % (AUTO) 6.5 % (20.0-44.0); MEAN CORPUSCULAR HGB CONC 32 g/dl (31.0-36.0); MEAN CORPUSCULAR VOLUME 86 fL (80-96); MONOCYTES # (AUTO) 2.2 /CMM (0.1-1.30); MONOCYTES % (AUTO) 7.7 % (2.0-12.0); NEUTROPHILS # (AUTO) 23.8 /CMM (1.8-8.9); NEUTROPHILS % (AUTO) 84.1 % (43.0-81.0); PLATELET COUNT (AUTO) 324 /CMM (150-450); WHITE BLOOD COUNT (AUTO) 28.3 K/uL (4.3-11.0)
--- NOTE | 2020-05-10 07:30 | NUR ---
received pt. in am alert and oriented x4.no complaints.rt arm iv intact.rt. groin arianna cath in place and intact.
[2020-05-10 08:00] VITALS: BP 154/82
[2020-05-10] MEDS: SEVELAMER CARBONATE 800 MG TABLET PO SCH ×3 (08:00→17:47)
--- NOTE | 2020-05-10 10:00 | NUR ---
alisia npo for surg. today.
[2020-05-10] MEDS: NICOTINE PATCH (21MG) 21 MG PATCH.TD24 TD SCH (12:08)
[2020-05-10] MEDS: MUPIROCIN OINT 2% 22 GM TUBE SCH ×2 (12:08→22:30)
--- NOTE | 2020-05-10 13:20 | NUR ---
left for or.
[2020-05-10] MEDS ORDERED: ANESTHESIA TRAY IN PYXIS 1 EA TRAY MC ONE (14:07)
[2020-05-10] MEDS ORDERED: HEPARIN SODIUM, PORCINE 1,000 UNIT/ML VIAL ONE (14:07)
[2020-05-10] MEDS ORDERED: LIDOCAINE HCL/MPF 1% 30 ML VIAL IJ ONE (14:07)
[2020-05-10] MEDS ORDERED: FENTANYL PF 100MCG/2ML AMPUL ONE (14:54)
[2020-05-10] MEDS ORDERED: HYDROCODONE/APAP 10/325MG 1 EA TABLET ONE (15:49)
[2020-05-10 16:00] VITALS: BP 142/76
--- NOTE | 2020-05-10 16:12 | NUR ---
returned to rm.via bed from or. vs stable.no complaints offered.rt. chest perma cath in place,and dry.
--- NOTE | 2020-05-10 17:00 | NUR ---
dr. wright in and removed rt. femoral dialysis cath.pressure applied and fresh dressing in place,
--- NOTE | 2020-05-10 17:45 | NUR ---
see freq. vs sheet in front of chart.
--- NOTE | 2020-05-10 18:00 | NUR ---
stable..pt. up to bathrm. and voided.
[2020-05-10 20:00] VITALS: BP_SYST 113; BP_SYST 145; BP_DIAS 61; BP_DIAS 95
--- NOTE | 2020-05-10 20:01 | NUR ---
MS RN NOTES PT C/O NECK PAIN 06/29. NOTIFIED SUMANTH DUNGEON MASTER FOR [facility]. WITH NEW ORDERS OF ONE TIME LIBBY. ORDERS NOTED AND CARRIED OUT. WILL CONTINUE TO MONITOR.
[2020-05-10] MEDS: HYDROCODONE/APAP 5/325MG 1 EACH TABLET PO ONE ×2 (20:20→20:25)
--- NOTE | 2020-05-10 20:25 | NUR ---
MS RN NOTES PT CHANGED HIS MIND REGARDING NORCO. PT WON'T TAKE NORCO RIGHT NOW. WASTED MEDICATION WITH CUSHION PADDER MERCY.
--- NOTE | 2020-05-11 06:50 | NUR ---
MS RN NOTES AWAKE & RESPONSIVE. NOT IN ANY DISTRESS. NO SOB NOTED. DENIES ANY PAIN OR DISCOMFORT AT THIS TIME. WITH IV-ML PATENT & INTACT. MONITORED ACCORDINGLY. CALL LIGHT WITHIN REACH. BED IN LOWEST POSITION. SR UP X2 FOR SAFETY. WILL ENDORSE TO NEXT SHIFT.
[2020-05-11 07:16] LABS: CALCIUM, SERUM 8.1 mg/dL (8.5-10.1); CREATININE 4.8 mg/dL (0.6-1.3); POTASSIUM 5.1 mmol/L (3.5-5.1)
--- NOTE | 2020-05-11 07:25 | NUR ---
MS RN NOTES RECEIVED PATIENT IN BED ALERT AND AWAKE ORIENTED X4. HOB ELEVATED. NO SOB. DENIES ANY C/O PAIN NOR DISCOMFORT AT THIS TIME. RIGHT CHESTWALL HD CATH INTACT WITH DRESSING IN PLACE. ILEANA SL INTACT AND PATENT. BED IN LOWEST POSITION, LOCKED. BED ALARM ON. CALL LIGHT WITHIN REACH. ABLE TO VERBALIZE NEEDS.
[2020-05-11 07:26] LABS: BASOPHILS % (AUTO) 0.1 % (0.0-2.0); EOSINOPHILS % (AUTO) 1.8 % (0.0-6.0); HEMATOCRIT 40 % (39-51); HEMOGLOBIN 12.8 g/dL (13.5-17.5); LYMPHOCYTES # (AUTO) 1.8 /CMM (0.8-4.8); LYMPHOCYTES % (AUTO) 6.7 % (20.0-44.0); MEAN CORPUSCULAR HGB CONC 32 g/dl (31.0-36.0); MEAN CORPUSCULAR VOLUME 86 fL (80-96); MONOCYTES # (AUTO) 2.2 /CMM (0.1-1.30); MONOCYTES % (AUTO) 7.9 % (2.0-12.0); NEUTROPHILS % (AUTO) 83.5 % (43.0-81.0); PLATELET COUNT (AUTO) 323 /CMM (150-450); WHITE BLOOD COUNT (AUTO) 27.6 K/uL (4.3-11.0)
[2020-05-11 08:00] VITALS: BP 154/86
[2020-05-11] MEDS: SEVELAMER CARBONATE 800 MG TABLET PO SCH ×3 (08:00→17:28)
--- NOTE | 2020-05-11 08:53 | NUR ---
MS RN NOTES HELD [place] ANTICIPATING HD.
[2020-05-11] MEDS: MUPIROCIN OINT 2% 22 GM TUBE SCH (09:33)
[2020-05-11] MEDS: NICOTINE PATCH (21MG) 21 MG PATCH.TD24 TD SCH (09:33)
--- NOTE | 2020-05-11 12:20 | NUR ---
MS RN NOTES HELD TRICIA, ANTICIPATING HD
--- NOTE | 2020-05-11 13:59 | NUR ---
PATRICK NOTE: PATRICK spoke to pt's mother, Cheryl ([phone]) to clarify the pt's discharge plan home. Per Cheryl, the pt will be discharged home with her and her , and will be transitioning to a sober living facility shortly after while attending outpatient drug treatment. Cheryl reported the pt will have full support in the home. Per Cheryl, the pt has expressed motivation in maintaining his sobriety due to his probation and upcoming court dates. Pt's mother reported she will bring clean clothes for the pt to change into once he is cleared to discharge. PATRICK endorsed to pt's RN, Ami. PATRICK contacted BOLIVAR Fernandez to relay aforementioned information. Per Rebecca, the pt's outpatient dialysis chair time has been approved. greeter guest services available for support as needed.
[2020-05-11 16:00] VITALS: BP 150/79
--- NOTE | 2020-05-11 16:11 | NUR ---
MS RN NOTES PATIENT CURRENTLY RECEIVING HD TX.
--- NOTE | 2020-05-11 17:29 | NUR ---
MS RN NOTES HELD RENAGEL PATIENT RECEIVING HD TX.
--- NOTE | 2020-05-11 18:55 | NUR ---
MS RN NOTES HD DONE OUTPUT 1000ML, FABI WELL
--- NOTE | 2020-05-11 18:55 | NUR ---
MS RN NOTES PATIENT RESTING COMFORTABLY IN BED. HOB ELEVATED. NO S/S OF RESPIRATORY. DENIES ANY C/O PAIN NOR DISCOMFORT AT THIS TIME. RIGHT CHESTWALL HD CATH INTACT WITH DRESSING IN PLACE. ILEANA SL INTACT AND PATENT. BED IN LOWEST POSITION, LOCKED. BED ALARM ON. CALL LIGHT WITHIN REACH. ABLE TO VERBALIZE NEEDS. IN NO APPARENT DISTRESS.
--- NOTE | 2020-05-11 19:36 | NUR ---
MS RN NOTES PATIENT WANTED TO LEAVE AMA, DR. HAYS MADE AWARE.
[2020-05-11 20:00] VITALS: BP 148/68
--- NOTE | 2020-05-11 20:12 | NUR ---
MS RN NOTES PT WANTED TO LEAVE AMA. EXPLAINED TO PT RISKS & BENEFITS OF LEAVING AMA. PT STILL WANTS TO GO HOME AMA. PT STATES "I HAVE TO GO TO WORK [place]." IV-ML D/CD. PT TOLERATED PROCEDURE WELL. PT SIGNED AMA FORM
--- NOTE | 2020-05-11 20:43 | NUR ---
MS RN NOTES PATIENT'S PARENTS WERE DOWNSTAIRS AND CONVINCED PATIENT NOT TO LEAVE AMA, PATIENT CHANGED HIS MIND REGARDING AMA AND WANTED TO STAY OVERNIGHT. DR. HAYS MADE AWARE. JDG SUP AWARE.
--- NOTE | 2020-05-12 06:47 | NUR ---
MS RN NOTES AWAKE & RESPONSIVE. NOT IN ANY DISTRESS. NO SOB NOTED. DENIES ANY PAIN OR DISCOMFORT AT THIS TIME. MONITORED ACCORDINGLY. CALL LIGHT WITHIN REACH. BED IN LOWEST POSITION. SR UP X2 FOR SAFETY. WILL ENDORSE TO NEXT SHIFT.
--- NOTE | 2020-05-12 07:15 | NUR ---
MS RN NOTES RECEIVED PATIENT IN BED ALERT AND AWAKE. HOB ELEVATED. NO SOB. DENIES ANY C/O PAIN NOR DISCOMFORT AT THIS TIME. RIGHT CHESTWALL HD CATH INTACT WITH DRESSING IN PLACE. BED IN LOWEST POSITION, LOCKED. BED ALARM ON. CALL LIGHT WITHIN REACH. ABLE TO VERBALIZE NEEDS.
[2020-05-12] MEDS: SEVELAMER CARBONATE 800 MG TABLET PO SCH (08:42)
[2020-05-12] MEDS: NICOTINE PATCH (21MG) 21 MG PATCH.TD24 TD SCH (08:43)
[2020-05-12 10:33] LABS: BASOPHILS % (AUTO) 0.1 % (0.0-2.0); EOSINOPHILS % (AUTO) 1.2 % (0.0-6.0); HEMATOCRIT 40 % (39-51); HEMOGLOBIN 12.7 g/dL (13.5-17.5); LYMPHOCYTES # (AUTO) 1.6 /CMM (0.8-4.8); LYMPHOCYTES % (AUTO) 6.1 % (20.0-44.0); MEAN CORPUSCULAR HGB CONC 32 g/dl (31.0-36.0); MEAN CORPUSCULAR VOLUME 86 fL (80-96); MONOCYTES # (AUTO) 1.7 /CMM (0.1-1.30); MONOCYTES % (AUTO) 6.4 % (2.0-12.0); NEUTROPHILS # (AUTO) 23.1 /CMM (1.8-8.9); NEUTROPHILS % (AUTO) 86.2 % (43.0-81.0); PLATELET COUNT (AUTO) 318 /CMM (150-450); WHITE BLOOD COUNT (AUTO) 26.8 K/uL (4.3-11.0)
[2020-05-12 11:16] LABS: ALBUMIN 2.5 g/dL (3.4-5.0); BILIRUBIN,TOTAL 0.9 mg/dL (0.2-1.0); CALCIUM, SERUM 8.8 mg/dL (8.5-10.1); CREATININE 2.8 mg/dL (0.6-1.3); MAGNESIUM 1.6 mg/dL (1.8-2.4); PHOSPHORUS 3.2 mg/dL (2.5-4.9); POTASSIUM 4.3 mmol/L (3.5-5.1)
--- NOTE | 2020-05-12 12:30 | NUR ---
MS RN NOTES ALERT AND AWAKE ORIENTED X4. NO S/S OF RESPIRATORY DISTRESS. DENIES ANY C/O PAIN NOR DISCOMFORT. AMBULATORY WITH STEADY GAIT. RIGHT CW HD ACCESS INTACT WITH DRESSING IN PLACE. PATIENT FOR DISCHARGE. DISCHARGE INSTRUCTIONS PROVIDED ALONG WITH EDUCATION. DISCHARGE PACKET AND CHANTIX PRESCRIPTION GIVEN TO PATIENT. NO IV ACCESS NOTED. ALL BELONGINGS ACCOUNTED FOR. PATIENT LEFT IN STABLE CONDITION.
== END 2020-05-12 13:19 | disposition home or self-care (01) | DRG 469 ==
LOC: ER 07:57 → ICU 11:12 → TELE 05-05 18:19 → MED 05-06 08:44 → MEDSG2 05-10 20:36 → UNDODISIN 05-11 20:12
PROVIDERS: ADMIT Internal Medicine; ATTEND Nurse Practitioner Acute Care
PROC: 05HB33Z Insertion of Infusion Device into Right Basilic Vein, Percutaneous Approach (ICD-10-PCS; principal; 2020-05-04)
PROC: 5A1D70Z Performance of Urinary Filtration, Intermittent, Less than 6 Hours Per Day (ICD-10-PCS; 2020-05-05)
PROC: 06HY33Z Insertion of Infusion Device into Lower Vein, Percutaneous Approach (ICD-10-PCS; 2020-05-05)
PROC: 05HM33Z Insertion of Infusion Device into Right Internal Jugular Vein, Percutaneous Approach (ICD-10-PCS; 2020-05-10)
PROC: B543ZZA Ultrasonography of Right Jugular Veins, Guidance (ICD-10-PCS; 2020-05-10)
PROC: 0JHD3XZ Insertion of Tunneled Vascular Access Device into Right Upper Arm Subcutaneous Tissue and Fascia, Percutaneous Approach (ICD-10-PCS; 2020-05-10)
DX: N17.0 Acute kidney failure with tubular necrosis (principal); G92 Toxic encephalopathy; E87.1 Hypo-osmolality and hyponatremia; I21.A1 Myocardial infarction type 2; J96.02 Acute respiratory failure with hypercapnia; B17.10 Acute hepatitis C without hepatic coma; E86.0 Dehydration; E83.51 Hypocalcemia; F11.10 Opioid abuse, uncomplicated; E87.5 Hyperkalemia; E87.2 Acidosis; F17.200 Nicotine dependence, unspecified, uncomplicated; K72.00 Acute and subacute hepatic failure without coma; K80.20 Calculus of gallbladder without cholecystitis without obstruction; I25.2 Old myocardial infarction; E83.39 Other disorders of phosphorus metabolism; Z22.322 Carrier or suspected carrier of Methicillin resistant Staphylococcus aureus; Z99.2 Dependence on renal dialysis; T38.0X5A Adverse effect of glucocorticoids and synthetic analogues, initial encounter; Y92.9 Unspecified place or not applicable; R33.9 Retention of urine, unspecified
CPT/HCPCS: 36415; 36600; 71045-TC; 76700-TC; 76942-TC; 77012-TC; 80048-TC; 80053-TC; 80061-TC; 80074; 80076-TC; 80305; 81000-TC; 82140-TC; 82248-TC; 82550-TC; 82553; 82570-TC; 82595; 82728-TC; 82803-TC; 82977-TC; 83520; 83605-TC; 83615-TC; 83735-TC; 83880; 84100-TC; 84155-TC; 84300-TC; 84443-TC; 84484-TC; 85025-TC; 85378-TC; 85385-TC; 85610-TC; 85652-TC; 85730-TC; 86140-TC; 86225; 86235; 86256; 86706; 87040-TC; 87081-TC; 87086-TC; 87340; 87806; 90935-TC; 93307-TC; 93976-TC; 94799-TC; A6403; C1750; G0378; J0456; J0690; J0696; J1100; J1644; J2250; J2310; J2405; J2704; J3010; J3490; J7030; J7050; J7060; U0003-CS

== ENCOUNTER 2020-05-29 11:55 | Emergency (ER) | payer MEDICAID, OTHER ==
[~2020-05-29] VITALS: Ht 167.6 cm; Wt 68.0 kg
--- NOTE | 2020-05-29 11:55 | NUR ---
PT BIB SELF C/O REDNESS AND SWELLING OF DIALYSIS CATHETER SITE. PT IS AAOX4, NOT IN RESPIRATORY DISTRESS, V/S STABLE, KEPT RESTED AND COMFORTABLE. WILL CONTINUE TO MONITOR.
--- NOTE | 2020-05-29 12:11 | NUR ---
SEEN AND EXAMINED BY .
--- NOTE | 2020-05-29 12:20 | NUR ---
IV LINE ESTABLISHED BLOOD DRAWN AND SENT TO LAB.
--- NOTE | 2020-05-29 12:28 | NUR ---
Paged Dr. Ramírez for consult
--- NOTE | 2020-05-29 12:37 | NUR ---
CALLED PHARMACY FOR ANTIBIOTIC.
--- NOTE | 2020-05-29 12:42 | NUR ---
Patient does not wish to proceed with medical care recommended by Dr. Morales. Patient given information related to possible complications, up to and including , which could occur as a result of leaving the hospital at this time. Patient verbalizes understanding of risks involved due to leaving against medical advice. Patient has signed AMA form.
--- NOTE | 2020-05-29 12:42 | NUR ---
IV removed. Catheter intact and site benign. Pressure and 4x4 applied to site. No bleeding noted.
[2020-05-29 12:44] VITALS: BP 119/84
[2020-05-29 12:57] LABS: BASOPHILS % (AUTO) 0.3 % (0.0-2.0); EOSINOPHILS % (AUTO) 1.5 % (0.0-6.0); HEMATOCRIT 35 % (39-51); HEMOGLOBIN 11.5 g/dL (13.5-17.5); LYMPHOCYTES # (AUTO) 1.3 /CMM (0.8-4.8); LYMPHOCYTES % (AUTO) 11.7 % (20.0-44.0); MEAN CORPUSCULAR HGB CONC 33 g/dl (31.0-36.0); MEAN CORPUSCULAR VOLUME 85 fL (80-96); MONOCYTES % (AUTO) 8.8 % (2.0-12.0); NEUTROPHILS # (AUTO) 8.9 /CMM (1.8-8.9); NEUTROPHILS % (AUTO) 77.7 % (43.0-81.0); PLATELET COUNT (AUTO) 419 /CMM (150-450); RED BLOOD CELL COUNT(AUTO) 4.12 MIL/uL (4.5-6.0); WHITE BLOOD COUNT (AUTO) 11.4 K/uL (4.3-11.0)
[2020-05-29] MEDS ORDERED: VANCOMYCIN 1 GM in IV D5W 250 ML IV ONE (13:00)
[2020-05-29] MEDS ORDERED: GENTAMICIN 80 MG in IV D5W 50 ML IV ONE (13:00)
[2020-05-29 13:08] LABS: CALCIUM, SERUM 9.2 mg/dL (8.5-10.1); CREATININE 1.2 mg/dL (0.6-1.3); POTASSIUM 3.4 mmol/L (3.5-5.1)
[2020-05-31] MEDS ORDERED: SULF1TAB48 PO (16:24)
== END 2020-05-29 12:44 | disposition left against medical advice (07) ==
LOC: ER 11:58
DX: T80.211A Bloodstream infection due to central venous catheter, initial encounter (principal); N17.9 Acute kidney failure, unspecified
CPT/HCPCS: 36415; 80048-TC; 83605-TC; 85025-TC; 87040-TC; J1580; J3370; J7060

== ENCOUNTER 2020-05-30 12:29 | Inpatient (IN) | payer MEDICAID ==
[~2020-05-30] VITALS: Ht 172.7 cm; Wt 72.6 kg
[2020-05-30] MEDS ORDERED: IV NS 0.9% 1,000 ML BAG IV ONE (13:00)
--- NOTE | 2020-05-30 13:05 | NUR ---
BIBS TO ER BED 12. AAOX4. NOT IN RESP DISTRESS. AMBUALTORY. CAME IN FOR PAULA CATH REMOVAL. PER PT, HIS DIALYSIS IS COMPLETED AND WOULD LIKE TO HAVE HIS QUITON CATH REMOVED. SITE IS NOTED DRY, NOT DRESSING NOTED. MD WAS AT THE BEDSIDE. ORDERS RECEVIED, NOTED AND CARRIED OUT.
[2020-05-30 13:14] LABS: BASOPHILS # (AUTO) 0.1 /CMM (0.0-0.2); BASOPHILS % (AUTO) 0.9 % (0.0-2.0); HEMATOCRIT 34 % (39-51); HEMOGLOBIN 11.5 g/dL (13.5-17.5); MEAN CORPUSCULAR HGB CONC 34 g/dl (31.0-36.0); MEAN CORPUSCULAR VOLUME 84 fL (80-96); MONOCYTES # (AUTO) 0.9 /CMM (0.1-1.30); MONOCYTES % (AUTO) 8.5 % (2.0-12.0); NEUTROPHILS # (AUTO) 8.9 /CMM (1.8-8.9); NEUTROPHILS % (AUTO) 80.6 % (43.0-81.0); PLATELET COUNT (AUTO) 445 /CMM (150-450); RED BLOOD CELL COUNT(AUTO) 4.06 MIL/uL (4.5-6.0)
--- NOTE | 2020-05-30 13:19 | NUR ---
MOVE SHEET SUBMITTED AND CALLED FOR MS BED.
[2020-05-30 13:25] LABS: CALCIUM, SERUM 9.1 mg/dL (8.5-10.1); CREATININE 1.3 mg/dL (0.6-1.3); POTASSIUM 3.7 mmol/L (3.5-5.1)
[2020-05-30] MEDS ORDERED: ACETAMINOPHEN 325 MG TABLET PO PRN (13:30)
[2020-05-30] MEDS ORDERED: MAG HYDROX/AL HYDROX/SIMETH 30 ML UDC PO PRN (13:30)
[2020-05-30] MEDS ORDERED: ONDANSETRON HCL/PF 4 MG/2 ML VIAL IVP PRN (13:30)
[2020-05-30] MEDS ORDERED: Z GUARD REMEDY 2 OZ OINT TP PRN (13:30)
[2020-05-30] MEDS ORDERED: HYDROCODONE/APAP 5/325MG 1 EACH TABLET PO PRN (13:30)
[2020-05-30] MEDS ORDERED: MAGNESIUM HYDROXIDE 30 ML UDC PO PRN (13:30)
--- NOTE | 2020-05-30 13:30 | NUR ---
SWAB DONE AND SENT TO LAB
[2020-05-30 13:39] LABS: ALBUMIN 3.3 g/dL (3.4-5.0); BILIRUBIN,DIRECT 0.4 mg/dL (0.0-0.2); BILIRUBIN,TOTAL 0.7 mg/dL (0.2-1.0); TOTAL PROTEIN, SERUM 7.2 g/dL (6.4-8.2)
--- NOTE | 2020-05-30 14:10 | NUR ---
COVID RESULT: NEGATIVE
--- NOTE | 2020-05-30 14:34 | NUR ---
GOT BED 320
--- NOTE | 2020-05-30 15:09 | NUR ---
REPORT GIVEN TO EUSEBIA BERKOWITZ FOR BRITTA
--- NOTE | 2020-05-30 15:45 | NUR ---
ADMISSION MS OPENING NOTES RECEIVED PATIENT FROM ALEXIS DALY RN NURSE. A/OX4 AMBULATORY . ADMITTED FOR THE MALFUNCTIONING CATHETER. PATIENT STATED THAT HE HAS COMPLETED THE DIALYSIS TREATMENT. VITALS CHARTED. PATIENT REQUESTED SMOKING WAIVER SIGN SO HE CAN GO FOR SMOKE IN THE PATIO. NO SOB OR DISCOMFORT NOTED. NO S/S OF COVID. WILL CONTINUE TO MONITOR THE PATIENT.
--- NOTE | 2020-05-30 15:52 | NUR ---
PT TRANSPORTED TO UNIT ON WHEELCHAIR BY EMT. PT IS IN STABLE CONDITION. NAD NOTED. PT IS AMBULATORY ON STEADY GAIT
[2020-05-30 16:00] VITALS: BP 148/90
[2020-05-30] MEDS: VANCOMYCIN 1 GM in IV D5W 250 ML IV SCH ×2 (16:12→23:01)
[2020-05-30 16:26] VITALS: BP 148/90
--- NOTE | 2020-05-30 17:09 | NUR ---
CODE STATUES PATIENT IS A/OX4 AND REQUESTS FULL CODE.ORDER OBTAINED.
[2020-05-30] MEDS: PIPERACILLIN /TAZOBACTAM 3.375 G in IV D5W 50 ML IV SCH (17:14)
--- NOTE | 2020-05-30 17:30 | NUR ---
MS RN NOTES PATIENT IS NOT COMPLIANT WITH DIET AND HE ORDERED SHAKES WITH DELIVERY. HE STATED THAT HE HAS COMPLETED THE HEMODIALYSIS AND HE IS FOLLOWING REGULAR DIET.
--- NOTE | 2020-05-30 17:55 | NUR ---
MS RN NOTES PATIENT LEFT THE UNIT WITH ANNUAL GIVING MANAGER (KERON) TO SMOKE IN THE PATIO. WAIVER FORM SIGNED.
--- NOTE | 2020-05-30 18:26 | NUR ---
MS RN NOTES PATIENT SITTING IN BED A/OX 4. IV SITE PATENT. NO SOB OR DISCOMFORT NOTED AT THIS TIME. REPORT WILL BE GIVEN TO SOURCING SPECIALIST NURSE FOR BRITTA.
--- NOTE | 2020-05-30 18:59 | NUR ---
MS RN NOTES NOTIFIED DR BENOIT THAT PATIENT STATED HE COMPLETED THE HEMODIALYSIS AND BELIEVES HE HAS TO BE ON REGULAR DIET RATHER THAN RENAL DIET. PER DR BENOIT IT IS OK TO CHANGE THE DIET TO REGULAR.
--- NOTE | 2020-05-30 19:15 | NUR ---
RN medsurg opening notes Received Pt sitting in bed watching TV comfortably. Pt is alert and orientedX4. Respiration is normal in room air. No SOB. No S/S of distress noted. RAC# 18 is clean, intact and flush without resistance. Noted redness on skin R upper chest HD cath. Pt denies any pain or discomfort at this time. Safety precautions is maintained. Bed at low position, brakes locked, side rails upX2, urinal at the bed side and call light is within reach. Will continue to monitor.
[2020-05-30 20:00] VITALS: BP 161/99
[2020-05-30 20:18] VITALS: BP 161/99
--- NOTE | 2020-05-30 20:30 | NUR ---
EUSEBIA hernandessuriaz notes Pt is out smoking accompanied by KENN Mason. Consent for smoking is signed by Pt. Pt verbalized understanding.
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
[2020-05-30 21:00] VITALS: BP 137/78
[2020-05-31] MEDS: PIPERACILLIN /TAZOBACTAM 3.375 G in IV D5W 50 ML IV SCH ×3 (00:12→12:01)
--- NOTE | 2020-05-31 07:00 | NUR ---
RN medsurg closing notes Pt is resting in bed comfortably. Pt is alert and orientedX4. Respiration is normal in room air. No SOB. No S/S of distress noted. RAC# 18 is clean, intact and flush without resistance. Routine meds were given as ordered. VS is stable. Afebrile. Kept Pt clean, dry and comfortable. Safety precautions is maintained. Bed at low position, brakes locked, side rails upX2, urinal at the bed side and call light is within reach. Will endorse to morning nurse for BRITTA.
[2020-05-31 07:01] LABS: BASOPHILS # (AUTO) 0.1 /CMM (0.0-0.2); BASOPHILS % (AUTO) 0.5 % (0.0-2.0); EOSINOPHILS % (AUTO) 1.4 % (0.0-6.0); HEMATOCRIT 32 % (39-51); LYMPHOCYTES % (AUTO) 10.4 % (20.0-44.0); MEAN CORPUSCULAR HGB CONC 34 g/dl (31.0-36.0); MEAN CORPUSCULAR VOLUME 84 fL (80-96); MONOCYTES # (AUTO) 0.8 /CMM (0.1-1.30); MONOCYTES % (AUTO) 8.7 % (2.0-12.0); NEUTROPHILS # (AUTO) 7.6 /CMM (1.8-8.9); PLATELET COUNT (AUTO) 398 /CMM (150-450); RED BLOOD CELL COUNT(AUTO) 3.81 MIL/uL (4.5-6.0); WHITE BLOOD COUNT (AUTO) 9.6 K/uL (4.3-11.0)
[2020-05-31 07:19] LABS: CALCIUM, SERUM 8.6 mg/dL (8.5-10.1); CREATININE 1.1 mg/dL (0.6-1.3); POTASSIUM 3.1 mmol/L (3.5-5.1)
--- NOTE | 2020-05-31 07:45 | NUR ---
RN MS OPENING NOTES PATIENT IS IN BED SLEEPING. WITH NO SIGNS OF DISTRESS AND NO SOB IN ROOM AIR. IV R AC 18#G INTACT SL. NO COMPLAINT OF DISCOMFORT AND NO PAIN AT THIS MOMENT. SAFETY MEASURES ARE APPLIED BED IS IN LOW POSITION, SIDE RAILS UP X 2 FOR SAFETY. CALL LIGHT WITHIN REACH. WILL CONTINUE TO MONITOR.
[2020-05-31 08:39] VITALS: BP 126/80
[2020-05-31] MEDS: VANCOMYCIN 1 GM in IV D5W 250 ML IV SCH (08:45)
--- NOTE | 2020-05-31 09:50 | NUR ---
WOUND CARE CONSULT: PT REFUSED SKIN ASSESSMENT AT THIS TIME AND WANTS TO SLEEP. CURRENT NANCY SCORE IS 23. WILL SEE PRN.
[2020-05-31] MEDS: POTASSIUM CHLORIDE 20 MEQ TAB.PRT.SR PO SCH ×2 (11:02→12:05)
[2020-05-31] MEDS ORDERED: LIDOCAINE 1% INJ 50 ML MDV IJ STA (14:36)
[2020-05-31 16:00] VITALS: BP 132/95
--- NOTE | 2020-05-31 16:00 | NUR ---
PATIENT VITAL SIGNS ARE STABLE, PATIENT HAS NO COMPLAINTS OF PAIN AND HAS NO SIGNS OF SOB AND NO SIGNS OF DISTRESS. PATIENT DISCHARGE INSTRUCTIONS WERE EXPLAINED VERBALLY, TO CONTINUE PRESCRIBED MEDICATIONS, FOLLOW UP WITH PRIMARY CARE PHYSICIAN AND RETURN TO THE ER IN CASE OF AN EMERGENCY. HE VERBALLY REPEATED BACH THE DISCHARGE INSTRUCTIONS. IV WAS REMOVED WITH NO SIGNS OF BLEEDING AND COVERED. BELONGING LIST WAS COMPLETED AND SIGNED. LEFT THE HOSPITAL SELF AMBULATORY WITH STEADY GAIT WALKED BY ME TO THE LOBBY.
[2020-05-31] MEDS ORDERED: SULF1TAB48 PO (16:24)
[2020-05-31] MEDS ORDERED: PERMETHRIN 5% CRM 60 GM TUBE TP ONE (20:00)
== END 2020-05-31 18:30 | disposition home or self-care (01) | DRG 466 ==
LOC: ER 12:32 → MED 14:56
PROVIDERS: ADMIT Internal Medicine; ATTEND Internal Medicine
DX: T85.71XA Infection and inflammatory reaction due to peritoneal dialysis catheter, initial encounter (principal); Y92.009 Unspecified place in unspecified non-institutional (private) residence as the place of occurrence of the external cause; Z98.890 Other specified postprocedural states; D63.8 Anemia in other chronic diseases classified elsewhere; B86 Scabies; E43 Unspecified severe protein-calorie malnutrition; F17.200 Nicotine dependence, unspecified, uncomplicated; Y84.8 Other medical procedures as the cause of abnormal reaction of the patient, or of later complication, without mention of misadventure at the time of the procedure; H50.9 Unspecified strabismus; Z86.19 Personal history of other infectious and parasitic diseases; N17.9 Acute kidney failure, unspecified; F11.21 Opioid dependence, in remission
CPT/HCPCS: 36415; 80048-TC; 80076-TC; 80202-TC; 83605-TC; 83880; 85025-TC; 85730-TC; 87040-TC; 87081-TC; C9803-CS; G0378; J2543; J3370; J3490; J7030; J7040; J7050; J7060

== ENCOUNTER 2020-06-22 19:51 | Emergency (ER) | payer MEDICAID ==
[~2020-06-22] VITALS: Ht 167.6 cm; Wt 69.9 kg
[~2020-06-22 19:51] MED LIST: SULF1TAB48 PO
[2020-06-22 20:16] VITALS: BP 146/87
[2020-06-22] MEDS ORDERED: FLUORESCEIN SODIUM OPHTH 1 EA STRIP ONE (20:25)
== END 2020-06-22 20:42 | disposition home or self-care (01) ==
LOC: ER 19:51
DX: S05.02XA Injury of conjunctiva and corneal abrasion without foreign body, left eye, initial encounter (principal); S05.01XA Injury of conjunctiva and corneal abrasion without foreign body, right eye, initial encounter; Z98.890 Other specified postprocedural states; X58.XXXA Exposure to other specified factors, initial encounter; Y93.89 Activity, other specified; Y92.39 Other specified sports and athletic area as the place of occurrence of the external cause; Y99.8 Other external cause status

== ENCOUNTER 2020-11-26 23:38 | Emergency (ER) | payer MEDICAID, OTHER ==
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
== END 2020-11-26 23:55 | disposition left against medical advice (07) ==
LOC: ER 23:40
DX: Z53.21 Procedure and treatment not carried out due to patient leaving prior to being seen by health care provider (principal)